=== PATIENT | female | born 1995 | race Caucasian/White ===

== ENCOUNTER 2017-06-06 22:14 | Inpatient (IN) | payer BC, OTHER ==
[~2017-06-06] VITALS: Ht 162.6 cm; Wt 72.4 kg
[2017-06-07] LABS: BASO % 0.5 % (0.0-1.0); EOS # 0.4 K/mm3 (0.0-0.50); EOS % 3.9 % (0.0-3.0); LARGE UNSTAINED CELL # 0.1 K/mm3 (0.0-0.4); LARGE UNSTAINED CELL % 1.2 % (0.0-4.0); LYMPH # 3.1 K/mm3 (1.5-6.5); LYMPH % 26.5 % (24.0-44.0); MEAN CORPUSCULAR HEMOGLOBIN 27.7 pg (27.0-33.0); MEAN CORPUSCULAR HGB CONC 33.5 g/dl (32.0-36.5); MEAN CORPUSCULAR VOLUME 82.8 fl (80.0-96.0); MONO # 0.4 K/mm3 (0.0-0.8); MONO % 3.9 % (0.0-5.0); NEUTROPHILS # 7.1 K/mm3 (1.8-7.7); PLATELET COUNT, AUTOMATED 251 k/mm3 (150-450); RED CELL DISTRIBUTION WIDTH 13.2 % (11.5-14.5); WHITE BLOOD COUNT 11.1 K/mm3 (4.0-10.0)
[2017-06-07 00:13] LABS: CONTROL LINE HCG INT CTR LINE PRESENT
[2017-06-07 00:21] LABS: ALBUMIN 4.3 GM/DL (3.2-5.2); ALBUMIN/GLOBULIN RATIO 1.54 (1.00-1.93); ALKALINE PHOSPHATASE 81 U/L (45-117); ALT/SGPT 22 U/L (12-78); AMYLASE 40 U/L (25-115); ANION GAP 8 MEQ/L (8-16); AST/SGOT 12 U/L (15-37); BILIRUBIN,DIRECT < 0.1 MG/DL (0.0-0.2); BILIRUBIN,TOTAL 0.2 MG/DL (0.2-1.0); BLOOD UREA NITROGEN 12 MG/DL (7-18); CALCIUM LEVEL 9.2 MG/DL (8.5-10.1); CARBON DIOXIDE LEVEL 26 MEQ/L (21-32); CHLORIDE LEVEL 108 MEQ/L (98-107); CREATININE FOR GFR 0.72 MG/DL (0.55-1.02); GLUCOSE, FASTING 69 MG/DL (70-105); POTASSIUM SERUM 3.9 MEQ/L (3.5-5.1); SODIUM LEVEL 142 MEQ/L (136-145); TOTAL PROTEIN 7.1 GM/DL (6.4-8.2)
[2017-06-07 01:13] LABS: METHADONE URINE NEGATIVE (NEGATIVE)
--- NOTE | 2017-06-07 01:30 | REPUSA ---
CLINICAL HISTORY: Abdominal pain. TECHNIQUE: Multiple axial, sagittal and coronal CT images were obtained through the abdomen and pelvi s without administration of oral or IV contrast material. COMMENTS: The liver is of uniform attenuation without mass or defect. There is no intra or extrahepatic biliary ductal dilatation. The spleen is normal. The gallbladder is within normal limits. The pancreas is of normal contour and attenuation characteristics. There is no evidence of adrenal mass. The kidneys are normal in size, shape and configuration. No renal or ureteral calculi are identified. There is no hydroureter or hydronephrosis. There is no evidence for appendicitis. There is no bowel wall thickening. No evidence for small or la rge bowel obstruction. There is no evidence of abdominal ascites or lymphadenopathy. There is no evidence of intrinsic or extrinsic bladder mass. There is no pelvic ascites or lymphadeno you. Mild diffuse thickening of the wall of the bladder. Images of the lung bases show no evidence of pleural or parenchymal mass. There are no pleural effusi ons. The bony structures are free of lytic or blastic lesions. IMPRESSION: Mild diffuse thickening of the wall of the bladder. Findings are suspicious for mild cystitis. Moderate large bowel fecal stasis. Mild apparent thickening of the proximal small bowels. Underdistention versus mild enteritis. Thank you for your kind referral of this patient.
[2017-06-07] MEDS ORDERED: MAALOX 30 ML SUSP *UDC PO PRN (01:45)
[2017-06-07] MEDS ORDERED: MOM 30ML SUSPENSION UDC PO PRN (01:45)
[2017-06-07 02:23] VITALS: BP 119/55
[2017-06-07 06:31] VITALS: BP 108/54
[2017-06-07] MEDS: SERTRALINE HCL 50 MG TAB PO SCH (08:33)
[2017-06-07] MEDS: ACETAMINOPHEN TAB 650MG DOSE (2X325MG) PO PRN (08:34)
[2017-06-07] MEDS: NICOTINE 14 MG/24 HR TRANSDERMAL TD SCH (15:10)
[2017-06-07 18:00] VITALS: BP 117/94
[2017-06-07] MEDS ORDERED: TETANUS/DIPHTHERIA TOX ADSORB ADULT 0.5ML SYR/VIAL (90714) IM ONE (19:00)
[2017-06-07] MEDS: PHENAZOPYRIDINE 100 MG TAB PO SCH (21:12)
[2017-06-07] MEDS: NITROFURANTOIN (MACROBID) 100 MG CAP PO SCH (21:12)
[2017-06-07] MEDS: MUPIROCIN 2% OINT 22 GM TUBE TOP SCH (21:14)
[2017-06-07] MEDS: BACITRACIN OINT 30GM TOP SCH (21:14)
[2017-06-08 06:00] VITALS: BP 112/59
[2017-06-08] MEDS: PHENAZOPYRIDINE 100 MG TAB PO SCH ×3 (08:29→20:56)
[2017-06-08] MEDS: SERTRALINE HCL 50 MG TAB PO SCH (08:29)
[2017-06-08] MEDS: NITROFURANTOIN (MACROBID) 100 MG CAP PO SCH ×2 (08:29→20:56)
[2017-06-08] MEDS: NICOTINE 14 MG/24 HR TRANSDERMAL TD SCH (08:30)
[2017-06-08] MEDS: BACITRACIN OINT 30GM TOP SCH ×2 (08:54→20:56)
[2017-06-08] MEDS: MUPIROCIN 2% OINT 22 GM TUBE TOP SCH ×2 (08:54→20:57)
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
[2017-06-08 18:00] VITALS: BP 114/64
--- NOTE | 2017-06-08 21:14 | HPE ---
DATE OF ADMISSION: 06/07/2017 HISTORY OF PRESENT ILLNESS: Please refer to psychiatric history and evaluation for further details on this admission. This examination and history is intended for medical issues, which may need treatment, followup or consult on this 21-year-old female. ALLERGIES: No known allergies. PRIMARY CARE PROVIDER: Sariah Gastelum at the [facility]. SOCIAL HISTORY: EtOH: None. Smokes one pack of cigarettes per day. Recreational drug use: None. PAST MEDICAL HISTORY: 1. Depression and anxiety. 2. Polycystic ovarian syndrome. PAST SURGICAL HISTORY: Negative. HOME MEDICATIONS: None. FAMILY HISTORY: Noncontributory. A 10-system review was done. She complained of bilateral and mid-pelvic pain. She says she has had it off and on for a year, but in the last two days, it has increased. No hematuria or dysuria. She has had some frequency. No hematochezia or melena. No nausea, vomiting or diarrhea. Otherwise, review of systems was negative. PHYSICAL EXAMINATION: A 21-year-old cooperative female in no acute distress. Height 64 inches, weight 73.8 kg, body mass index (BMI) 27.9, blood pressure 119/55, pulse 81, respirations 18, temperature 98.1. Patient is alert and oriented today. Pupils are equal and react to light. Extraocular movements intact. Cornea and sclerae clear. Conjunctivae is normal. No facial asymmetry. Pharynx, tongue and gums are pink and moist. Tongue is midline. Neck is supple without lymphadenopathy. No thyromegaly. No goiter. Chest is clear to auscultation without wheeze or retractions. Heart is regular. Left upper outer breast at approximately 11 am, has a dime-size scabbed wound. No swelling or drainage. Abdomen soft. Mild tenderness lower suprapubic area. No rebound or guarding. No masses, pulsations or bruits. No organomegaly. Bowel sounds are positive. Genital/Rectal: Not done. Extremities show equal strength, full range of motion. No cyanosis, clubbing or edema. Peripheral pulses equal and palpable bilaterally. Skin is warm and dry. Left forearm shows approximately six cigarette mabry in various stages of healing. No redness or drainage. IMPRESSION/PLAN: 1. Psychiatric plan per psychiatry. 2. Bilateral pelvic pain about approximately one year, worse in the last two days. She had a CT of the abdomen and pelvis in the room which showed some bladder wall thickening and fecal stasis. No obstruction. Plan to get culture and sensitivity. Start Pyridium 100 three times a day for two days, Macrobid 100 by mouth twice a day. Send urine for C and S. 3. Chest wound. She states was from her dog. She got a tetanus shot. 4. Cigarette mabry. Approximately six on the left forearm in various stages of healing. Will do Bacitracin twice a day.
[2017-06-08] MEDS: QUEtiapine FUMARATE 50 MG TAB PO PRN (21:59)
[2017-06-08] MEDS: ACETAMINOPHEN TAB 650MG DOSE (2X325MG) PO PRN (22:00)
--- NOTE | 2017-06-09 02:43 | IPN ---
DATE OF SERVICE: 06/08/2017 The patient today states "I'm doing good." She says she does have a lot of time to "think" and this is helping her to feel better. She is denying suicidal ideation. MENTAL STATUS EXAMINATION: She is alert and oriented times three. Eye contact is fairly good. She is verbally spontaneous. Not psychotic, suicidal, homicidal. No formal thought disorder noted. She says her mood is good. Her affect is full range and appropriate. Concentration is fair. Memory is intact. Insight and judgment is fair. DIAGNOSES: 1. Other specified depressive disorder. 2. Panic disorder. 3. Posttraumatic stress disorder. 4. Dependent personality disorder. TREATMENT PLAN: At this point, the patient has just been restarted on the Zoloft. We will continue to monitor the patient for continued resolution of her suicidality and continued stabilization of her mood.
[2017-06-09 06:48] VITALS: BP 129/63
[2017-06-09] MEDS: BACITRACIN OINT 30GM TOP SCH ×2 (08:27→21:31)
[2017-06-09] MEDS: SERTRALINE HCL 50 MG TAB PO SCH (08:27)
[2017-06-09] MEDS: MUPIROCIN 2% OINT 22 GM TUBE TOP SCH ×2 (08:27→21:30)
[2017-06-09] MEDS: NICOTINE 14 MG/24 HR TRANSDERMAL TD SCH (08:28)
[2017-06-09] MEDS: NITROFURANTOIN (MACROBID) 100 MG CAP PO SCH ×2 (08:28→21:30)
[2017-06-09] MEDS: PHENAZOPYRIDINE 100 MG TAB PO SCH ×3 (08:28→21:30)
[2017-06-09 18:00] VITALS: BP 115/58
[2017-06-09] MEDS: QUEtiapine FUMARATE 50 MG TAB PO PRN (22:40)
[2017-06-10 06:33] VITALS: BP 131/63
[2017-06-10] MEDS: NICOTINE 14 MG/24 HR TRANSDERMAL TD SCH (08:22)
[2017-06-10] MEDS: SERTRALINE HCL 50 MG TAB PO SCH (08:22)
[2017-06-10] MEDS: NITROFURANTOIN (MACROBID) 100 MG CAP PO SCH ×2 (08:22→21:10)
[2017-06-10] MEDS: BACITRACIN OINT 30GM TOP SCH ×2 (08:23→21:00)
[2017-06-10] MEDS: MUPIROCIN 2% OINT 22 GM TUBE TOP SCH ×2 (08:23→21:00)
[2017-06-10] MEDS: ACETAMINOPHEN TAB 650MG DOSE (2X325MG) PO PRN (08:24)
[2017-06-10 18:00] VITALS: BP 138/70
[2017-06-10] MEDS: QUEtiapine FUMARATE 50 MG TAB PO PRN (23:44)
[2017-06-11 06:27] VITALS: BP 130/62
[2017-06-11] MEDS: SERTRALINE HCL 50 MG TAB PO SCH (09:25)
[2017-06-11] MEDS: NITROFURANTOIN (MACROBID) 100 MG CAP PO SCH ×2 (09:25→21:56)
[2017-06-11] MEDS: BACITRACIN OINT 30GM TOP SCH ×2 (09:26→21:00)
[2017-06-11] MEDS: NICOTINE 14 MG/24 HR TRANSDERMAL TD SCH (09:26)
[2017-06-11] MEDS: MUPIROCIN 2% OINT 22 GM TUBE TOP SCH ×2 (09:26→21:00)
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
[2017-06-11] MEDS: LORazepam 1 MG TAB PO PRN (17:41)
[2017-06-11 18:00] VITALS: BP 111/59
[2017-06-11] MEDS: QUEtiapine FUMARATE 50 MG TAB PO PRN (21:56)
[2017-06-12 07:01] VITALS: BP 136/66
[2017-06-12] MEDS: BACITRACIN OINT 30GM TOP SCH ×2 (08:35→21:00)
[2017-06-12] MEDS: NICOTINE 14 MG/24 HR TRANSDERMAL TD SCH (08:36)
[2017-06-12] MEDS: SERTRALINE HCL 50 MG TAB PO SCH (08:36)
[2017-06-12] MEDS: NITROFURANTOIN (MACROBID) 100 MG CAP PO SCH ×2 (08:36→21:57)
[2017-06-12] MEDS: MUPIROCIN 2% OINT 22 GM TUBE TOP SCH ×2 (08:36→21:00)
[2017-06-12] MEDS: LORazepam 1 MG TAB PO PRN ×2 (09:57→18:04)
--- NOTE | 2017-06-12 16:53 | IPN ---
DATE: 06/11/2017 Evaluated 21-year-old female who was admitted on 06/07/2017 for severe depression and self mutilating behavior over a recent breakup with her boyfriend. SUBJECTIVE: The patient reports that she has been feeling very anxious, especially because last night she had to tell her parents once again that they had to leave because she felt very uncomfortable with their visit. She says that her parents continue to believe that she does not need to be at the inpatient mental health unit because they do not consider the depression is an illness that should be treated at the inpatient room. She says that she believes that this is the way they think because they have a schizophrenic son, her brother, and they think that hospitalization should be for the severely mental ill people, not for her. She says that she felt yesterday and the day before that she finds that her groups are being very helpful for her. That she is thankful that she sought help and that she is looking forward to stay a couple of more days because she does not feel ready to leave. She denies suicidal ideation, denies homicidal ideation. Denies thought delusions and denies auditory or visual hallucinations. OBJECTIVE: The patient was seen in the office. She was alert and oriented times three. Dressed in hospital clothes with pleasant attitude and good demeanor. Her mood was anxious and her affect was congruent to that. Her anxiety levels were very high because tomorrow she has a meeting with her family at 4:00 p.m. Her speech is normal, spontaneous and fluent. Her thought process is intact. Her thought content is coherent. Recent and remote memory are intact. Attention and concentration are fair. Abstract thinking and computation are good. She denies psychotic thoughts. Denies suicidal or homicidal ideation. Her insight and judgment are fair and they keep improving. Her impulse control is good. DIAGNOSES: 1. Major depressive disorder, moderate to severe. 2. Borderline personality traits. 3. Posttraumatic stress disorder (PTSD). 4. Obsessive compulsive disorder by history. ASSESSMENT: The patient has had a good response to medications and to groups but naturally she is feeling stressed out about meeting with her parents tomorrow and having to talk to them. The patient was told that she should not worry because this meeting will be taken place with a rehabilitation caseworker and, if possible, by this automotive service writer, so that we can educate her parents in regard to depression. At the time of this evaluation, the patient was not in danger to self or others and she seems to be improving and gaining insight into her situation. We will monitor closely and we will followup.
[2017-06-12 18:00] VITALS: BP 117/65
[2017-06-12] MEDS: QUEtiapine FUMARATE 50 MG TAB PO PRN (21:57)
[2017-06-13 07:10] VITALS: BP 117/56
[2017-06-13 07:19] VITALS: BP 117/56
[2017-06-13] MEDS: NITROFURANTOIN (MACROBID) 100 MG CAP PO SCH ×2 (08:04→21:05)
[2017-06-13] MEDS: NICOTINE 14 MG/24 HR TRANSDERMAL TD SCH (08:04)
[2017-06-13] MEDS: SERTRALINE HCL 50 MG TAB PO SCH (08:04)
[2017-06-13] MEDS: BACITRACIN OINT 30GM TOP SCH ×2 (08:08→21:07)
[2017-06-13] MEDS: MUPIROCIN 2% OINT 22 GM TUBE TOP SCH ×2 (08:09→21:10)
[2017-06-13] MEDS ORDERED: SERTRALINE HCL 50 MG TAB PO ONE (10:30)
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
[2017-06-13] MEDS: LORazepam 0.5 MG TAB PO PRN ×2 (11:02→21:08)
[2017-06-13] MEDS ORDERED: SERT50TA PO (11:23)
[2017-06-13] MEDS ORDERED: NICO14PA TD (11:23)
[2017-06-13] MEDS ORDERED: BACI50OI TOP (11:23)
[2017-06-13] MEDS ORDERED: QUET5TAB PO (11:23)
[2017-06-13] MEDS ORDERED: MUPI2OI TOP (11:26)
[2017-06-13] MEDS ORDERED: NITR100C2 PO (11:26)
--- NOTE | 2017-06-13 14:20 | MHIPNPDOC ---
[facility] Progress Note Progress Note DATE OF SERVICE: 06/13/17 INTERVAL HISTORY: Medication Side effects: Patient denies medication side effects Behavior: Staff has reported patient is too flirtatious with male patients, wants her attention and has become particularly close to another patient. Group Attendance: Has been attending groups Psychiatric Symptom change: Has become more depressed and anxious VITAL SIGNS: See below. NEW TEST RESULTS: See below CURRENT MEDICATIONS: See below. MENTAL STATUS EXAMINATION: General: Alert, cooperative, looks tired, with good eye contact and good hygiene Speech: Spontaneous and fluid Thought processes: Intact Thought content: Coherent Abstract reasoning, and computation: Fair Description of associations: Not loose Description of abnormal or psychotic thoughts: Denies suicidal ideation, denies homicidal ideation, denies auditory and visual hallucinations, denies thought delusions, denies flashbacks, denies phobias but reports increased anxiety and depression Judgment: Poor Insight: Poor Orientation: Oriented 3 Recent and remote memory: Intact Attention span and concentration: Is fair Fund of knowledge: Fair Mood: Depressed and anxious Affect: Sad, anxious, depressed DIAGNOSES: 1. Posttraumatic stress disorder. 2. And borderline personality disorder. 3. Panic attacks . ASSESSMENT: MANAGEMENT PLAN: Medications: Zoloft will be increased to 100. Psychotherapy: She is attending groups, will encourage her to use the coping skills that she learns in groups and not to dwell on the past Social: She is being interacting with peers and staff Misc: -- Disposition: Patient was going to be discharged home today but she started crying and shivering and then discharge was put on hold until Friday which is her last day. If she is decompensating. She keeps saying that she is not feeling well, she will have to be to be 2 PC'd and requests to long-term treatment/hospitalization at [place] TIME SPENT: 30 minutes. Vital Signs Vital Signs Date Time Temp Pulse Resp B/P (MAP) Pulse Ox O2 Delivery O2 Flow Rate FiO2 06/13/17 07:19 97.8 73 16 117/56 (76) 06/07/17 02:23 98 Room Air Current Medications Current Medications Acetaminophen (Tylenol Tab) 650 mg Q6HP PRN PO HEADACHE or DISCOMFORT Last administered on 06/10/17t 08:24; Start 06/07/17 at 01:45; Stop 07/07/17 at 01:44 Al Hydrox/Mg Hydrox/Simethicone (Mylanta) 30 ml Q4HP PRN PO HEARTBURN/ INDIGESTION; Start 06/07/17 at 01:45; Stop 07/07/17 at 01:44 Bacitracin (Bacitracin Oint) to mabry left forearm BID TOP Last administered on 06/12/17 08:35; Start 06/07/17 at 21:00; Stop 07/07/17 at 20:59 Home Med (Med Rec Complete!) ASDIRECTED XX ; Start 06/07/17 at 02:45; Stop at 02:45; Status DC Lorazepam (Ativan) 0.5 mg Q6HP PRN PO ANXIETY/AGITATION Last administered on 11:02; Start 06/13/17 at 10:30; Stop 06/20/17 at 10:29 Lorazepam (Ativan) 1 mg Q6HP PRN PO ANXIETY/AGITATION Last administered on 06/12 18:04; Start 06/07/17 at 01:45; Stop 06/13/17 at 10:27; Status DC Magnesium Hydroxide (Milk Of Magnesia) 30 ml DAILYPRN PRN PO CONSTIPATION Last administered on 06/07/17 23:30; Start 06/07/17 at 01:45; Stop 07/07/17 at 01:44 Mupirocin (Bactroban 2% Ointment) apply to wound on chest BID TOP Last administered on 06/12/17 08:36; Start 06/07/17 at 21:00; Stop 07/07/17 at 20:59 Nicotine (Nicoderm Cq 14mg) 1 patch DAILY TD Last administered on 06/13/17 08: 04; Start 06/07/17 at 09:00; Stop 07/07/17 at 08:59 Nitrofurantoin Monoh/Nitrofur Macro (Macrobid) 100 mg BID PO Last administered on 06/13/17 08:04; Start 06/07/17 at 21:00; Stop 06/14/17 at 20:59 Phenazopyridine HCl (Pyridium) 100 mg TID PO Last administered on 06/09/17 21: 30; Start 06/07/17 at 21:00; Stop 06/10/17 at 08:22; Status DC Quetiapine Fumarate (SEROquel) 50 mg QHSP PRN PO INSOMNIA Last administered on 06/12/17 21:57; Start 06/07/17 at 01:45; Stop 07/07/17 at 01:44 Sertraline HCl (Zoloft) 50 mg DAILY PO Last administered on 06/13/17 08:04; Start 06/07/17 at 09:00; Stop 06/13/17 at 10:23; Status DC Sertraline HCl (Zoloft) 100 mg DAILY PO ; Start 06/14/17 at 09:00; Stop at 08:59; Status Cancel Sertraline HCl (Zoloft) 150 mg QAM PO ; Start 06/14/17 at 09:00; Stop 07/14/17 at 08:59 Allergies Coded Allergies: No Known Allergies (Unverified , 06/06/17) CHRIS MEDINA MD Jun 13, 2017 14:20
[2017-06-13 18:00] VITALS: BP 118/66
[2017-06-14 06:35] VITALS: BP 129/70
[2017-06-14] MEDS: SERTRALINE 100 MG TAB PO SCH (08:57)
[2017-06-14] MEDS: NITROFURANTOIN (MACROBID) 100 MG CAP PO SCH ×2 (08:58→22:39)
[2017-06-14] MEDS: NICOTINE 14 MG/24 HR TRANSDERMAL TD SCH (08:58)
[2017-06-14] MEDS: BACITRACIN OINT 30GM TOP SCH ×2 (08:59→21:00)
[2017-06-14] MEDS: MUPIROCIN 2% OINT 22 GM TUBE TOP SCH ×2 (08:59→21:00)
[2017-06-14] MEDS ORDERED: SERTRALINE HCL 50 MG TAB PO SCH ×2 (09:00)
[2017-06-14 18:00] VITALS: BP 126/83
[2017-06-14] MEDS: LORazepam 0.5 MG TAB PO PRN (22:39)
[2017-06-15 06:37] VITALS: BP 100/58
[2017-06-15] MEDS: BACITRACIN OINT 30GM TOP SCH ×2 (08:43→21:00)
[2017-06-15] MEDS: MUPIROCIN 2% OINT 22 GM TUBE TOP SCH ×2 (08:44→21:00)
[2017-06-15] MEDS: NICOTINE 14 MG/24 HR TRANSDERMAL TD SCH (08:46)
[2017-06-15] MEDS: NITROFURANTOIN (MACROBID) 100 MG CAP PO SCH ×2 (08:46→22:02)
[2017-06-15] MEDS: SERTRALINE 100 MG TAB PO SCH (08:46)
[2017-06-15 18:00] VITALS: BP 115/56
[2017-06-15] MEDS: LORazepam 0.5 MG TAB PO PRN (22:04)
[2017-06-16 06:00] VITALS: BP 99/55
[2017-06-16] MEDS: NICOTINE 14 MG/24 HR TRANSDERMAL TD SCH (09:00)
[2017-06-16] MEDS: BACITRACIN OINT 30GM TOP SCH (09:08)
[2017-06-16] MEDS: SERTRALINE 100 MG TAB PO SCH (09:08)
[2017-06-16] MEDS: NITROFURANTOIN (MACROBID) 100 MG CAP PO SCH (09:08)
[2017-06-16] MEDS: MUPIROCIN 2% OINT 22 GM TUBE TOP SCH (09:09)
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
== END 2017-06-16 14:00 | disposition home or self-care (01) | DRG 752 ==
LOC: M ED 22:14 → M ED INP 06-07 01:43 → M PSY 06-07 02:15
PROVIDERS: ADMIT Psychiatry & Neurology Psychiatry; ATTEND Psychiatry & Neurology Psychiatry
DX: F60.3 Borderline personality disorder (principal); N39.0 Urinary tract infection, site not specified; F43.10 Post-traumatic stress disorder, unspecified; F42.9 Obsessive-compulsive disorder, unspecified; F41.0 Panic disorder [episodic paroxysmal anxiety]; F17.210 Nicotine dependence, cigarettes, uncomplicated; X76.XXXA Intentional self-harm by smoke, fire and flames, initial encounter; T22.012A Burn of unspecified degree of left forearm, initial encounter; Z79.899 Other long term (current) drug therapy; Y92.009 Unspecified place in unspecified non-institutional (private) residence as the place of occurrence of the external cause; Y99.9 Unspecified external cause status; Y93.89 Activity, other specified

== ENCOUNTER → 2023-08-07 | Outpatient (CLI) | payer BC ==
[~2023-08-07] MED LIST: AUGM875T28 PO; BACI50OI TOP; BENZ200C70 PO; ISOVUE-370 76% 100ML VIAL As Ordered ONE; MUCI600T37 PO; MUPI2OI TOP; NICO14PA TD; NITR100C2 PO; QUET50TA4 PO; SERT-141 PO
== END ==
LOC: M RAD 14:24
PROVIDERS: ATTEND Otolaryngology
DX: R22.1 Localized swelling, mass and lump, neck (principal)
CPT/HCPCS: 70491; Q9967

== ENCOUNTER 2023-10-16 07:25 | Day surgery (SDC) | payer BC ==
[~2023-10-16] VITALS: Ht 160 cm; Wt 75.3 kg
[~2023-10-16 07:25] MED LIST changes: +APAP325T4 PO; -ISOVUE-370 76% 100ML VIAL As Ordered ONE; +METF500T13 PO
[2023-10-16] MEDS ORDERED: LR 1,000 ML IV SCH (07:50)
[2023-10-16] MEDS ORDERED: ONDANSETRON 4MG 2ML VIAL As Ordered ONE (08:43)
[2023-10-16] MEDS ORDERED: SUGAMMADEX SODIUM 500 MG/5 ML VIAL (BRIDION) As Ordered ONE (08:44)
[2023-10-16] MEDS ORDERED: propofoL 200 MG/20 ML VIAL As Ordered ONE (08:44)
[2023-10-16] MEDS ORDERED: ROCURONIUM BROMIDE 50MG/5ML VIAL As Ordered ONE (08:44)
[2023-10-16] MEDS ORDERED: LIDOCAINE 2% 100MG/5ML SDV (FOR ANES.) As Ordered ONE (08:44)
[2023-10-16] MEDS ORDERED: fentaNYL 100 MCG/2 ML INJECTION As Ordered ONE (08:48)
[2023-10-16] MEDS ORDERED: MIDAZOLAM INJ 2MG/2ML VIAL As Ordered ONE (08:48)
[2023-10-16] MEDS ORDERED: ACETAMINOPHEN 1000MG 100ML IV BAG As Ordered ONE (09:36)
[2023-10-16] MEDS ORDERED: MORPHINE 2 MG/ML 1ML VIAL IV PRN (10:15)
[2023-10-16] MEDS ORDERED: ONDANSETRON 4MG 2ML VIAL IV PRN (10:15)
[2023-10-16] MEDS ORDERED: fentaNYL 100 MCG/2 ML INJECTION IV PRN (10:15)
[2023-10-16] MEDS: oxyCODONE 5MG TAB PO PRN ×2 (10:33→11:02)
[2023-10-16 11:58] VITALS: BP 129/78; TEMP 97.1; O2SAT 97
== END 2023-10-16 12:30 | disposition home or self-care (01) ==
LOC: M SDC 07:25
PROVIDERS: ATTEND Otolaryngology
DX: J35.01 Chronic tonsillitis (principal); Z88.8 Allergy status to other drugs, medicaments and biological substances; F17.210 Nicotine dependence, cigarettes, uncomplicated
CPT/HCPCS: 42826; 81025; 88302; J0131; J1100; J2250; J2405; J3010